=== PATIENT | male | born 1980 | race Caucasian/White ===

== ENCOUNTER 2021-09-09 09:40 | Outpatient (CLI) | payer BC, SELFPAY ==
--- NOTE | ~2021-09-09 | XR_ITS ---
EXAMINATION: XR fl inj shoulder RT - MR/CT DATE: 09/09/2021 10:49 INDICATION: Chronic right shoulder pain. Right shoulder dislocation 2 times. TECHNIQUE: A time-out was performed to verify the patient's name, date of , and procedure to b e performed. The procedure including the risks, benefits, and alternatives was discussed with the pat ient. Risks discussed included bleeding and infection. The patient understood the risks and agreed to proceed. The skin overlying the right glenohumeral joint was prepped and draped in usual sterile fas hion. Anesthetic was administered with 1% lidocaine subcutaneously. A 22 G needle was advanced unde r fluoroscopic guidance into the joint. Subsequently, injectate consisting of 12 mL of 1:200 Multiha nce, 1:4 1% lidocaine, and 1:4 Omnipaque 180 was instilled. The needle was removed and the entry sit e was cleaned and dressed. There were no immediate complications. Fluoroscopy exposure time was 0.1 minutes. The total number of images was 3. FINDINGS: Real-time fluoroscopy demonstrates the needle and contrast in the right glenohumeral joint. IMPRESSION: 1. Successful right glenohumeral joint injection of contrast for subsequent MR arthrography. Reviewed, dictated and finalized at location A.
--- NOTE | ~2021-09-09 | MR_ITS ---
EXAMINATION: MR shoulder RT w con DATE: 09/09/2021 11:25 INDICATION: Chronic right shoulder pain TECHNIQUE: Magnetic resonance imaging (MRI) of the right shoulder was performed following intra-dev cular gadolinium contrast injection and without intravenous contrast. Details of the glenohumeral estrada nt injection have been dictated separately. Sequences included axial T2-weighted FS FSE, axial T1-we ighted FS FSE, coronal oblique T1-weighted FS FSE, coronal oblique T2-weighted FSE, sagittal T2-weigh bryan FS FSE, sagittal T1-weighted FSE, and ABER (abduction external rotation) T1-weighted FS FSE. COMPARISON: None. FINDINGS: Coracoacromial arch: The acromion undersurface is curved in morphology (type II). The coracoacromial ligament is normal. M inimal acromioclavicular osteoarthritis. Rotator cuff: Mild supraspinatus and infraspinatus tendinopathy. There is intrasubstance imbibition of intra-articu lar contrast in the distal supraspinatus and infraspinatus tendons, the latter better appreciated on the ABER imaging indicative of articular sided tear. A small portion of torn tendon is seen along the articular side of what is likely the conjoined portion of the supraspinatus and infraspinatus tendon s on the ABER images. There is however no clearly defined measurable tear defect. The teres minor ten don is normal. Mild subscapularis tendinopathy without discrete tear. There is mild thickening of the rotator cable. Normal rotator cuff muscle bulk and signal. Biceps tendon, glenoid labrum and glenohumeral cartilage: Long head of the biceps tendon is intact. There is diffuse degenerative tearing of the glenoid labrum . Partial-thickness cartilage loss along the posterior glenoid. Deep fissuring at the anterior and an teroinferior glenoid with mild subarticular cystic change along the rim of the anteroinferior glenoid . There is a region of deep chondral ulceration without degenerative subchondral changes along the po sterior superomedial aspect of the humeral head. Bones and other: Bone alignment is normal. No fracture or pathologic marrow replacing process. Mild synovitis delineat ed by contrast in the axillary and deep subscapular recess of the glenohumeral joint space as well as along the long head biceps tendon sheath. No loose osteochondral bodies. Small amount of nonenhancin g fluid in the subacromial/subdeltoid bursa consistent with mild bursitis. IMPRESSION: 1. Mild rotator cuff tendinopathy with mild articular sided tearing involving the supraspinatus and i nfraspinatus tendons is intrasubstance contrast imbibition but without a well-defined measurable tear defect. 2. 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 3. Mild subacromial/subdeltoid bursitis. Reviewed, dictated and finalized at location B. IMPRESSION: 1. Mild rotator cuff tendinopathy with mild articular sided tearing involving t he supraspinatus and infraspinatus tendons is intrasubstance contrast imbibitio n but without a well-defined measurable tear defect. 2. Mild glenohumeral osteoarthritis with regions of moderate and high-grade cho ndromalacia and with associated diffuse degenerative tearing of the glenoid lab rum. 3. Mild subacromial/subdeltoid bursitis.
== END 2021-09-09 09:41 | disposition home or self-care (01) ==
PROVIDERS: PCP Nurse Practitioner Family; Visit Provider Orthopaedic Surgery
DX: M25.511 Pain in right shoulder (principal); G89.29 Other chronic pain; M75.81 Other shoulder lesions, right shoulder; M19.011 Primary osteoarthritis, right shoulder; M94.211 Chondromalacia, right shoulder; M75.51 Bursitis of right shoulder
CPT/HCPCS: 23350; 73222; 77002; A9577; Q9965